=== PATIENT | female | born 1975 | race Caucasian/White ===

== ENCOUNTER 2017-02-02 23:36 | Emergency (ER) | payer OTHER, MEDICAID ==
[~2017-02-02] VITALS: Ht 167.6 cm; Wt 133.5 kg
[~2017-02-02 23:36] MED LIST: ALBU8.5H5 INH; ALLERGY PILL PO; ALPR1TAB6 PO; ATEN100T PO; BUDE10.22 IH; DOXE50CA PO; GABA600T PO; GABA800T PO; NITR0.4T SL; NYST15CR2 TD; OMEP-110 PO; OMEP40CA6 PO; OXYC-302 PO; PANT20TA3 PO; PRED10TA PO; PREG150C PO; RANO500T2 PO; SUCR1TAB26 PO; ZOLP10TA5
[2017-02-03 02:18] VITALS: BP 124/81
[2017-02-03 03:03] LABS: BLOOD UREA NITROGEN 8 mg/dL (7-18)
== END 2017-02-03 04:08 | disposition home or self-care (01) ==
LOC: ED 23:59
DX: R06.00 Dyspnea, unspecified (principal); R42 Dizziness and giddiness; J02.9 Acute pharyngitis, unspecified; I10 Essential (primary) hypertension; E11.9 Type 2 diabetes mellitus without complications; K21.9 Gastro-esophageal reflux disease without esophagitis; Z90.710 Acquired absence of both cervix and uterus; Z90.49 Acquired absence of other specified parts of digestive tract; E87.6 Hypokalemia; Z88.2 Allergy status to sulfonamides; Z91.040 Latex allergy status
CPT/HCPCS: 36415; 71010; 80048; 82040; 85025; 93005; 99285

== ENCOUNTER 2017-02-04 21:10 | Emergency (ER) | payer OTHER, MEDICAID ==
[~2017-02-04] VITALS: Ht 167.6 cm; Wt 129.6 kg
[2017-02-04 21:44] VITALS: BP 143/88
[2017-02-04 22:47] LABS: ASPARTATE AMINO TRANSFERASE 31 U/L (15-37); BLOOD UREA NITROGEN 5 mg/dL (7-18)
[2017-02-04 23:01] LABS: IS PT STATUS REG ER OR PRE ER? YES
== END 2017-02-05 01:56 | disposition home or self-care (01) ==
LOC: ED 23:49
DX: R07.89 Other chest pain (principal); R00.2 Palpitations; E11.9 Type 2 diabetes mellitus without complications; I10 Essential (primary) hypertension; Z90.710 Acquired absence of both cervix and uterus; Z90.49 Acquired absence of other specified parts of digestive tract; Z88.2 Allergy status to sulfonamides
CPT/HCPCS: 36415; 71020; 80053; 83690; 84439; 84443; 84484; 85025; 93005; 99285

== ENCOUNTER 2017-02-17 03:56 | Inpatient (IN) | payer OTHER, MEDICAID ==
[~2017-02-17] VITALS: Ht 167.6 cm; Wt 135.4 kg
[2017-02-17] MEDS ORDERED: MORPHINE SULFATE 4 MG/ML, 1ML ONE (04:20)
[2017-02-17] MEDS ORDERED: ONDANSETRON 2MG/ML, 2ML ONE ×2 (04:21→10:32)
[2017-02-17] MEDS ORDERED: SODIUM CHLORIDE 0.9% 1,000ML IVBOLUS ONE (04:30)
[2017-02-17] MEDS ORDERED: ONDANSETRON 2MG/ML, 2ML IVPush ONE (04:30)
[2017-02-17] MEDS ORDERED: PROPOFOL 10 MG/ML, 20ML IVPush ONE (04:30)
[2017-02-17] MEDS ORDERED: SODIUM CHLORIDE FLUSH 10ML SYR IVF ONE (04:30)
[2017-02-17] MEDS ORDERED: MORPHINE SULFATE 4 MG/ML, 1ML IVPush ONE (04:30)
[2017-02-17 04:37] LABS: BLOOD UREA NITROGEN 7 mg/dL (7-18)
[2017-02-17 04:42] LABS: IS PT STATUS REG ER OR PRE ER? YES
[2017-02-17] MEDS ORDERED: KETAMINE 10 MG/ML, 20ML ONE (04:52)
[2017-02-17] MEDS ORDERED: KETAMINE 10 MG/ML, 20ML IV ONE (05:00)
[2017-02-17] MEDS ORDERED: ALPRazolam 1MG TABLET PO PRN (06:30)
[2017-02-17] MEDS ORDERED: DOXEPIN 25 MG CAPSULE PO PRN (06:30)
[2017-02-17] MEDS ORDERED: TEMPLATE NON-FORMULARY MED. (Albuterol Sulfate** (Albuterol Sulfate Hfa**) 2 PUFF(S)) INH PRN (06:30)
[2017-02-17] MEDS: morphine SULFATE 10 MG/ML, 1ML IVPush PRN ×2 (08:20→13:31)
[2017-02-17 08:39] VITALS: BP 102/67
[2017-02-17] MEDS ORDERED: ATENOLOL 50 MG TABLET PO SCH (09:00)
[2017-02-17] MEDS: NS + 20MEQ KCL 1,000 ML IV SCH ×2 (10:24→19:07)
[2017-02-17] MEDS: PANTOPRAZOLE 20MG TABLET PO SCH (10:27)
[2017-02-17] MEDS: FLUTICASONE/VILANTEROL 100-25MCG/INH INH SCH (10:27)
[2017-02-17] MEDS: PREGABALIN 150 MG CAPSULE PO SCH ×3 (10:27→20:30)
[2017-02-17] MEDS: ATENOLOL 25 MG TABLET PO SCH ×2 (10:28→13:42)
[2017-02-17] MEDS ORDERED: PROPOFOL 10 MG/ML, 20ML ONE (10:32)
[2017-02-17] MEDS ORDERED: SUCCINYLCHOLINE 20 MG/ML, 10ML ONE (10:32)
[2017-02-17] MEDS ORDERED: CEFAZOLIN 1,000 MG ONE (10:32)
[2017-02-17 12:42] VITALS: BP 120/68
[2017-02-17] MEDS: ONDANSETRON 2MG/ML, 2ML IVPush PRN ×2 (13:40→22:01)
[2017-02-17] MEDS ORDERED: BUPIVACAINE 0.25% ONE (14:09)
[2017-02-17] MEDS ORDERED: BUPIVACAINE/PF 0.5% ONE (14:09)
[2017-02-17] MEDS ORDERED: FENTANYL PF 100 MCG/2ML ONE ×2 (14:13→16:54)
[2017-02-17] MEDS ORDERED: MIDAZOLAM 1 MG/ML, 2ML ONE (14:13)
[2017-02-17] MEDS ORDERED: BUPIVACAINE/PF-EPI 0.5% 1:200K ONE (14:18)
[2017-02-17] MEDS ORDERED: OXYcodone 5 MG/5 ML ORAL.SOL UDC PO PRN (17:00)
[2017-02-17] MEDS ORDERED: HYDROmorphone 1 MG/ML, 1ML IV PRN (17:00)
[2017-02-17] MEDS ORDERED: PROMETHAZINE 25 MG/ML, 1ML IV PRN (17:00)
[2017-02-17] MEDS ORDERED: MEPERIDINE/PF 25MG/0.5ML IVPush PRN (17:00)
[2017-02-17] MEDS ORDERED: hydrALAzine 20 MG/ML, 1ML IV PRN (17:00)
[2017-02-17] MEDS ORDERED: FENTANYL PF 100 MCG/2ML IV PRN (17:00)
[2017-02-17] MEDS ORDERED: LABETALOL 5MG/ML, 20ML IV PRN (17:00)
[2017-02-17] MEDS ORDERED: MIDAZOLAM 1 MG/ML, 2ML IV PRN (17:00)
[2017-02-17] MEDS ORDERED: ONDANSETRON 2MG/ML, 2ML IVPush PRN (17:00)
[2017-02-17] MEDS ORDERED: ATENOLOL 25 MG TABLET PO SCH (18:00)
[2017-02-17] MEDS ORDERED: morphine SULFATE 10 MG/ML, 1ML IVPush PRN (18:00)
[2017-02-17] MEDS: ENOXAPARIN 30 MG/0.3 ML SQ SCH (18:00)
[2017-02-17 19:18] VITALS: BP 122/62
[2017-02-17] MEDS: CEFAZOLIN PMX 2GM/50ML 50 ML IVPB SCH (20:30)
[2017-02-17] MEDS: OXYcodone/APAP 5/325MG TABLET PO PRN (20:31)
[2017-02-18 00:48] VITALS: BP 131/73
[2017-02-18] MEDS: NS + 20MEQ KCL 1,000 ML IV SCH ×2 (01:15→10:00)
[2017-02-18] MEDS: CEFAZOLIN PMX 2GM/50ML 50 ML IVPB SCH (04:10)
[2017-02-18] MEDS: ENOXAPARIN 30 MG/0.3 ML SQ SCH (05:06)
[2017-02-18 06:23] LABS: BLOOD UREA NITROGEN 5 mg/dL (7-18)
[2017-02-18 06:52] VITALS: BP 129/84
[2017-02-18] MEDS: FLUTICASONE/VILANTEROL 100-25MCG/INH INH SCH (08:42)
[2017-02-18] MEDS: PANTOPRAZOLE 20MG TABLET PO SCH (08:43)
[2017-02-18] MEDS: PREGABALIN 150 MG CAPSULE PO SCH (08:43)
[2017-02-18] MEDS: ATENOLOL 25 MG TABLET PO SCH (08:44)
[2017-02-18] MEDS: OXYcodone/APAP 5/325MG TABLET PO PRN ×2 (08:45→13:28)
[2017-02-18] MEDS ORDERED: ATEN50TA41 PO (11:03)
[2017-02-18] MEDS ORDERED: OXYC1TAB7 PO (11:03)
[2017-02-18] MEDS ORDERED: DIPHENHYDRAMINE 25 MG CAPSULE PO ONE (12:30)
[2017-02-18 13:16] VITALS: BP 117/81
== END 2017-02-18 16:25 | disposition home or self-care (01) | DRG 493 ==
LOC: ED 05:25 → EDIP 05:36 → 4EST 06:28 → DCLOUNGE 02-18 15:55
PROVIDERS: ADMIT Family Medicine; ATTEND Family Medicine
PROC: 0QSJ04Z Reposition Right Fibula with Internal Fixation Device, Open Approach (ICD-10-PCS; 2017-02-17)
PROC: 0SSF04Z Reposition Right Ankle Joint with Internal Fixation Device, Open Approach (ICD-10-PCS; 2017-02-17)
PROC: 0QSG04Z Reposition Right Tibia with Internal Fixation Device, Open Approach (ICD-10-PCS; principal; 2017-02-17 15:00)
DX: S82.851A Displaced trimalleolar fracture of right lower leg, initial encounter for closed fracture (principal); Z68.42 Body mass index [BMI] 45.0-49.9, adult; I47.1 Supraventricular tachycardia; E87.6 Hypokalemia; I10 Essential (primary) hypertension; M79.7 Fibromyalgia; E11.9 Type 2 diabetes mellitus without complications; E66.9 Obesity, unspecified; F41.9 Anxiety disorder, unspecified; F43.9 Reaction to severe stress, unspecified; J45.909 Unspecified asthma, uncomplicated; K21.9 Gastro-esophageal reflux disease without esophagitis; M21.961 Unspecified acquired deformity of right lower leg; Z87.891 Personal history of nicotine dependence; W18.30XA Fall on same level, unspecified, initial encounter; Y93.89 Activity, other specified; Y99.8 Other external cause status; Y92.89 Other specified places as the place of occurrence of the external cause
CPT/HCPCS: 27762; 36415; 71010; 76001; 80048; 82040; 84484; 85025; 85610; 85730; 93005; 93306; 99152; 99153; C1713; J0690; J1650; J2250; J2405; J2704; J3010; J3480; J3490; C1769; J0330; J2270; J7030; Q0163

== ENCOUNTER 2017-03-01 13:25 | Emergency (ER) | payer OTHER, MEDICAID ==
[~2017-03-01 13:25] MED LIST changes: +ATEN50TA41 PO; +OXYC1TAB7 PO
[2017-03-01] MEDS ORDERED: LORazepam 1MG TABLET ONE (13:49)
[2017-03-01] MEDS ORDERED: OXYC-302 PO (13:59)
[2017-03-01] MEDS ORDERED: PLEASE ENTER HEIGHT AND WEIGHT MC SCH (14:00)
[2017-03-01] MEDS ORDERED: LORazepam 1MG TABLET PO ONE (14:00)
[2017-03-01 14:12] LABS: BLOOD UREA NITROGEN 9 mg/dL (7-18)
[2017-03-01 14:17] LABS: IS PT STATUS REG ER OR PRE ER? YES
[2017-03-01 15:06] VITALS: BP 131/77
== END 2017-03-01 15:14 | disposition home or self-care (01) ==
LOC: ED 14:18
DX: M84.461D Pathological fracture, right tibia, subsequent encounter for fracture with routine healing (principal); M84.463D Pathological fracture, right fibula, subsequent encounter for fracture with routine healing; R00.2 Palpitations; R42 Dizziness and giddiness; E11.9 Type 2 diabetes mellitus without complications; Z88.2 Allergy status to sulfonamides; Z91.040 Latex allergy status
CPT/HCPCS: 36415; 71010; 80048; 82040; 84484; 85025; 93005; 99285

== ENCOUNTER 2017-03-18 10:38 | Observation (INO) | payer OTHER, MEDICAID ==
[~2017-03-18] VITALS: Ht 167.6 cm; Wt 132.8 kg
[2017-03-18] MEDS: SODIUM CHLORIDE 0.9% 1,000 ML IV SCH ×2 (10:50→18:50)
[2017-03-18] MEDS ORDERED: CEFAZOLIN PMX 1GM/50ML 50 ML IVPB ONE (11:00)
[2017-03-18] MEDS: PLEASE ENTER HEIGHT AND WEIGHT MC SCH ×2 (12:00→20:00)
[2017-03-18] MEDS ORDERED: PREG200C PO (12:01)
[2017-03-18] MEDS ORDERED: DOXE100C PO (12:01)
[2017-03-18] MEDS ORDERED: CETI10CA PO (12:03)
[2017-03-18 12:26] LABS: ASPARTATE AMINO TRANSFERASE 11 U/L (15-37)
[2017-03-18 12:29] LABS: BLOOD UREA NITROGEN 13 mg/dL (7-18)
[2017-03-18] MEDS ORDERED: FENTANYL PF 250 MCG/5ML ONE (12:34)
[2017-03-18] MEDS ORDERED: MIDAZOLAM 1 MG/ML, 5ML ONE (12:35)
[2017-03-18] MEDS ORDERED: ZOLPIDEM 5MG TABLET PO PRN (14:00)
[2017-03-18] MEDS ORDERED: HYDROcodone/APAP 5/325 TABLET PO PRN (14:00)
[2017-03-18] MEDS ORDERED: ACETAMINOPHEN 325 MG TABLET PO PRN ×2 (14:00→14:30)
[2017-03-18] MEDS ORDERED: FENTANYL PF 100 MCG/2ML IV PRN (14:30)
[2017-03-18] MEDS ORDERED: HYDROmorphone 1 MG/ML, 1ML IV PRN (14:30)
[2017-03-18] MEDS ORDERED: MIDAZOLAM 1 MG/ML, 2ML IV PRN (14:30)
[2017-03-18] MEDS ORDERED: OXYcodone 5 MG/5 ML ORAL.SOL UDC PO PRN (14:30)
[2017-03-18] MEDS ORDERED: PROMETHAZINE 25 MG/ML, 1ML IV PRN (14:30)
[2017-03-18] MEDS ORDERED: ONDANSETRON 2MG/ML, 2ML IVPush PRN (14:30)
[2017-03-18] MEDS ORDERED: OXYcodone 5 MG/5 ML ORAL.SOL UDC ONE (14:31)
[2017-03-18] MEDS ORDERED: MAGNESIUM HYDROXIDE 8%, 30ML UDC PO SCH (16:00)
[2017-03-18] MEDS ORDERED: BISACODYL 10 MG SUPP PR PRN (16:00)
[2017-03-18] MEDS ORDERED: hydrALAzine 20 MG/ML, 1ML IV PRN (16:00)
[2017-03-18] MEDS ORDERED: ONDANSETRON 2MG/ML, 2ML ONE (16:57)
[2017-03-18] MEDS ORDERED: PROPOFOL 10 MG/ML, 20ML ONE (16:57)
[2017-03-18] MEDS ORDERED: SUCCINYLCHOLINE 20 MG/ML, 10ML ONE (16:57)
[2017-03-18] MEDS ORDERED: CEFAZOLIN 1,000 MG ONE (16:57)
[2017-03-18] MEDS ORDERED: DEXAMETHASONE 4 MG/ML, 1ML ONE (16:57)
[2017-03-18 20:00] VITALS: BP 129/70
[2017-03-18] MEDS ORDERED: OXYcodone/APAP 5/325MG TABLET PO PRN (22:30)
[2017-03-18] MEDS ORDERED: ALPRazolam 1MG TABLET PO PRN (22:30)
[2017-03-18] MEDS: SODIUM CHLORIDE FLUSH 10ML SYR IVF SCH (22:58)
[2017-03-18] MEDS: CEFAZOLIN PMX 1GM/50ML 50 ML IVPB SCH (22:58)
[2017-03-19 00:50] VITALS: BP 138/84
[2017-03-19] MEDS ORDERED: PANTOPROZOLE 40MG TABLET PO SCH (07:30)
[2017-03-19 08:17] VITALS: BP 106/72
[2017-03-19] MEDS: CEFAZOLIN PMX 1GM/50ML 50 ML IVPB SCH (08:20)
[2017-03-19] MEDS: SODIUM CHLORIDE FLUSH 10ML SYR IVF SCH (08:20)
[2017-03-19] MEDS ORDERED: CETIRIZINE 10 MG TABLET PO SCH (09:00)
[2017-03-19] MEDS ORDERED: PREGABALIN 200 MG CAPSULE PO SCH (09:00)
[2017-03-19] MEDS ORDERED: ATEN25TA PO (10:45)
[2017-03-19] MEDS ORDERED: DOXEPIN 100 MG CAPSULE PO SCH (21:00)
== END 2017-03-19 13:04 | disposition home or self-care (01) ==
LOC: CACL 10:38 → ORIP 14:00 → 5SO 15:35 → DCLOUNGE 03-19 12:48
PROVIDERS: ADMIT Internal Medicine Cardiovascular Disease; ATTEND Internal Medicine Cardiovascular Disease
DX: I49.5 Sick sinus syndrome (principal); I45.5 Other specified heart block; R00.1 Bradycardia, unspecified; R55 Syncope and collapse; E78.2 Mixed hyperlipidemia
CPT/HCPCS: 33208; 36415; 71010; 80053; 85025; 85610; 96365; 96375; C1779; C1785; C1892; G0378; J0330; J0690; J1100; J2250; J2405; J2704; J3010

== ENCOUNTER 2017-05-19 10:20 | Emergency (ER) | payer OTHER, MEDICAID ==
[~2017-05-19] VITALS: Ht 167.6 cm; Wt 134.0 kg
[~2017-05-19 10:20] MED LIST changes: +ATEN25TA PO; +CETI10CA PO; +DOXE100C PO; +PREG200C PO; -SUCR1TAB26 PO; +SUCR1TAB33 PO
[2017-05-19] MEDS ORDERED: SODIUM CHLORIDE 0.9% 1,000 ML IV ONE (10:36)
[2017-05-19] MEDS ORDERED: PLEASE ENTER HEIGHT AND WEIGHT MC SCH (11:00)
[2017-05-19] MEDS ORDERED: SODIUM CHLORIDE 0.9% 1,000ML IVBOLUS ONE (11:00)
[2017-05-19] MEDS ORDERED: SODIUM CHLORIDE FLUSH 10ML SYR IVF ONE (11:00)
[2017-05-19 11:01] LABS: HEMATOCRIT 42.4 % (34.6-47.8); HEMOGLOBIN 13.6 g/dL (11.7-16.4); WHITE BLOOD COUNT 8.8 x10^3/uL (3.4-10)
[2017-05-19] MEDS ORDERED: ATEN25TA PO (11:04)
[2017-05-19] MEDS ORDERED: MULT-516 PO (11:05)
[2017-05-19 11:14] LABS: BLOOD UREA NITROGEN 11 mg/dL (7-18)
[2017-05-19 11:22] LABS: IS PT STATUS REG ER OR PRE ER? YES
[2017-05-19 12:31] VITALS: BP 103/70
== END 2017-05-19 12:34 | disposition home or self-care (01) ==
LOC: ED 10:42
DX: R55 Syncope and collapse (principal); G89.11 Acute pain due to trauma; M25.571 Pain in right ankle and joints of right foot; I10 Essential (primary) hypertension; E11.9 Type 2 diabetes mellitus without complications; K21.9 Gastro-esophageal reflux disease without esophagitis; Z90.49 Acquired absence of other specified parts of digestive tract; Z90.710 Acquired absence of both cervix and uterus; Z91.040 Latex allergy status
CPT/HCPCS: 36415; 71010; 73610; 80048; 82040; 84484; 85025; 93005; 96360; 99285; J7030

== ENCOUNTER 2018-05-17 00:38 | Emergency (ER) | payer OTHER, MEDICAID ==
[~2018-05-17] VITALS: Ht 165.1 cm; Wt 12.0 kg
[~2018-05-17 00:38] MED LIST changes: +MULT-516 PO
[2018-05-17 01:15] LABS: BASOPHILS # (AUTO) 0.06 x10^3/uL (0-0.1); BASOPHILS % (AUTO) 1 % (0-1); EOSINOPHILS # (AUTO) 0.09 x10^3/uL (0-0.4); EOSINOPHILS % (AUTO) 1 % (1-7); LYMPHOCYTES % (AUTO) 39 % (22-44); MD NO; MEAN CORPUSCULAR HEMOGLOBIN 27.4 pg (27.0-34.8); MEAN CORPUSCULAR HGB CONC 33.4 g/dL (32.4-35.8); MEAN PLATELET VOLUME 8.7 fL (7.4-10.4); MONOCYTES # (AUTO) 1.08 x10^3/uL (0.2-0.8); MONOCYTES % (AUTO) 9 % (2-9); NEUTROPHILS # (AUTO) 6.22 x10^3/uL (1.8-6.8); NEUTROPHILS % (AUTO) 51 % (42-75); PLATELET COUNT 212 x10^3/uL (130-400); RED CELL DISTRIBUTION WIDTH 14.4 % (9.6-15.2)
[2018-05-17 01:25] LABS: ALBUMIN 3.9 g/dL (3.4-5.0); ANION GAP 10 mmol/L (5-15); CALCIUM 9.4 mg/dL (8.5-10.1); CHLORIDE 101 mmol/L (98-107); CREATININE 1.07 mg/dL (0.55-1.02)
[2018-05-17 01:29] LABS: TROPONIN I < 0.015 ng/mL (0.000-0.045)
[2018-05-17] MEDS ORDERED: METHOCARBAMOL 750 MG TABLET ONE (01:50)
[2018-05-17] MEDS ORDERED: KETOROLAC 30 MG/1 ML ONE (01:50)
[2018-05-17 01:59] VITALS: BP 102/61
[2018-05-17] MEDS ORDERED: KETOROLAC 30 MG/1 ML IM ONE (02:00)
[2018-05-17] MEDS ORDERED: METHOCARBAMOL 750 MG TABLET PO ONE (02:00)
[2018-05-17] MEDS ORDERED: METH750T87 PO (12:13)
[2018-05-17] MEDS ORDERED: IBUP-1223 PO (12:13)
[2018-05-17] MEDS ORDERED: DIGO125T PO (12:13)
== END 2018-05-17 02:18 | disposition home or self-care (01) ==
LOC: ED 02:12
DX: S16.1XXA Strain of muscle, fascia and tendon at neck level, initial encounter (principal); M79.622 Pain in left upper arm; I10 Essential (primary) hypertension; K21.9 Gastro-esophageal reflux disease without esophagitis; Z86.39 Personal history of other endocrine, nutritional and metabolic disease; X58.XXXA Exposure to other specified factors, initial encounter; Y93.89 Activity, other specified; Y92.89 Other specified places as the place of occurrence of the external cause; Y99.8 Other external cause status
CPT/HCPCS: 36415; 71045; 80048; 82040; 84484; 85025; 93005; 96372; 99285; J1885

== ENCOUNTER 2018-05-18 09:04 | Observation (INO) | payer OTHER, MEDICAID ==
[~2018-05-18] VITALS: Ht 165.1 cm; Wt 121.8 kg
[~2018-05-18 09:04] MED LIST changes: +DIGO125T PO; +IBUP-1223 PO; +METH750T87 PO
[2018-05-18] MEDS: SODIUM CHLORIDE 0.9% 1,000 ML IV SCH ×3 (09:08→22:14)
[2018-05-18 09:40] VITALS: BP 94/57
[2018-05-18] MEDS ORDERED: FENTANYL PF 100 MCG/2ML ONE (10:15)
[2018-05-18] MEDS ORDERED: LIDOCAINE 2%, 50ML ONE (10:15)
[2018-05-18] MEDS ORDERED: CEFAZOLIN PMX 1GM/50ML 50 ML ONE (10:15)
[2018-05-18] MEDS ORDERED: MIDAZOLAM 1 MG/ML, 5ML ONE (10:15)
[2018-05-18] MEDS ORDERED: CEFAZOLIN 1,000 MG ONE (10:16)
[2018-05-18] MEDS ORDERED: DIPHENHYDRAMINE 50 MG/ML, 1ML ONE (10:48)
[2018-05-18 12:00] VITALS: BP 122/76
[2018-05-18] MEDS ORDERED: ACETAMINOPHEN 325 MG TABLET PO PRN (12:00)
[2018-05-18] MEDS ORDERED: HOLD MEDICATION MC PRN (12:00)
[2018-05-18] MEDS ORDERED: ALPRazolam 1MG TABLET PO PRN (12:00)
[2018-05-18] MEDS: METHOCARBAMOL 750 MG TABLET PO PRN ×2 (14:40→23:29)
[2018-05-18] MEDS: PREGABALIN 200 MG CAPSULE PO SCH ×2 (16:00→20:32)
[2018-05-18 19:00] VITALS: BP 138/87
[2018-05-18] MEDS: IBUPROFEN 800 MG TABLET PO SCH (20:32)
[2018-05-18] MEDS: CEFAZOLIN PMX 1GM/50ML 50 ML IVPB SCH (20:32)
[2018-05-18] MEDS: SODIUM CHLORIDE FLUSH 10ML SYR IVF SCH (20:33)
[2018-05-18] MEDS ORDERED: ATENOLOL 25 MG TABLET PO SCH (21:00)
[2018-05-18] MEDS ORDERED: SERTRALINE 50MG TABLET PO SCH (23:00)
[2018-05-19 00:41] VITALS: BP 102/71
[2018-05-19] MEDS: DIPHENHYDRAMINE 25 MG CAPSULE PO PRN ×2 (01:59→11:05)
[2018-05-19] MEDS: CEFAZOLIN PMX 1GM/50ML 50 ML IVPB SCH (04:30)
[2018-05-19] MEDS ORDERED: PANTOPROZOLE 40MG TABLET PO SCH (07:30)
[2018-05-19] MEDS: SODIUM CHLORIDE FLUSH 10ML SYR IVF SCH (07:48)
[2018-05-19] MEDS: PREGABALIN 200 MG CAPSULE PO SCH (07:48)
[2018-05-19] MEDS: IBUPROFEN 800 MG TABLET PO SCH (07:49)
[2018-05-19 07:56] VITALS: BP 140/83
[2018-05-19] MEDS: SODIUM CHLORIDE 0.9% 1,000 ML IV SCH (08:59)
[2018-05-19] MEDS ORDERED: DIGOXIN 0.125 MG TABLET PO SCH (09:00)
[2018-05-19] MEDS ORDERED: CETIRIZINE 10 MG TABLET PO SCH (09:00)
[2018-05-19] MEDS ORDERED: MULTIVITAMIN 1 TABLET PO SCH (09:00)
== END 2018-05-19 12:41 | disposition home or self-care (01) ==
LOC: CACL 09:04 → ORIP 11:54 → 5SO 11:56 → DCLOUNGE 05-19 12:29
PROVIDERS: ADMIT Internal Medicine Cardiovascular Disease; ATTEND Internal Medicine Cardiovascular Disease
DX: T82.190A Other mechanical complication of cardiac electrode, initial encounter (principal); R55 Syncope and collapse; Z95.0 Presence of cardiac pacemaker; E78.2 Mixed hyperlipidemia; I49.8 Other specified cardiac arrhythmias; Y83.8 Other surgical procedures as the cause of abnormal reaction of the patient, or of later complication, without mention of misadventure at the time of the procedure; Y92.89 Other specified places as the place of occurrence of the external cause
CPT/HCPCS: 33216; 71045; 96365; 96366; 99156; 99157; C1779; C1892; G0378; J0690; J1200; J2250; J3010; Q0163; Q9967

== ENCOUNTER 2018-05-21 21:17 | Emergency (ER) | payer OTHER, MEDICAID ==
[~2018-05-21] VITALS: Ht 165.1 cm; Wt 126.0 kg
[2018-05-21] MEDS ORDERED: FAMOTIDINE 20 MG TABLET PO ONE (22:30)
[2018-05-21] MEDS ORDERED: FAMOTIDINE 20 MG TABLET ONE (22:53)
[2018-05-21 23:00] VITALS: BP 105/78
== END 2018-05-21 23:37 | disposition home or self-care (01) ==
LOC: ED 23:17
DX: T78.40XA Allergy, unspecified, initial encounter (principal); K21.9 Gastro-esophageal reflux disease without esophagitis; I10 Essential (primary) hypertension; E11.9 Type 2 diabetes mellitus without complications
CPT/HCPCS: 99283; J7512

== ENCOUNTER 2019-01-31 13:50 | Emergency (ER) | payer MEDICAID, MEDICARE, OTHER ==
[~2019-01-31] VITALS: Ht 167.6 cm; Wt 116.6 kg
[2019-01-31 14:24] LABS: BASOPHILS # (AUTO) 0.07 x10^3/uL (0-0.1); BASOPHILS % (AUTO) 1 % (0-1); EOSINOPHILS % (AUTO) 2 % (1-7); LYMPHOCYTES # (AUTO) 2.91 x10^3/uL (1-3.4); LYMPHOCYTES % (AUTO) 32 % (22-44); MD NO; MEAN CORPUSCULAR HGB CONC 32.1 g/dL (32.4-35.8); MEAN CORPUSCULAR VOLUME 83.9 fL (80-100); MEAN PLATELET VOLUME 9.2 fL (7.4-10.4); MONOCYTES # (AUTO) 0.92 x10^3/uL (0.2-0.8); MONOCYTES % (AUTO) 10 % (2-9); NEUTROPHILS # (AUTO) 5.07 x10^3/uL (1.8-6.8); NEUTROPHILS % (AUTO) 55 % (42-75); PLATELET COUNT 226 x10^3/uL (130-400); RED BLOOD COUNT 5.63 x10^6/uL (3.82-5.3); RED CELL DISTRIBUTION WIDTH 14.6 % (9.6-15.2)
[2019-01-31 14:29] LABS: ANION GAP 4 mmol/L (5-15); CALCIUM 9.3 mg/dL (8.5-10.1); CHLORIDE 110 mmol/L (98-107); CREATININE 0.93 mg/dL (0.55-1.02)
[2019-01-31 14:34] LABS: TROPONIN I < 0.015 ng/mL (0.000-0.045)
--- NOTE | 2019-01-31 15:37 | NUR ---
TASK RN: PT TO ROOM FROM LOBBY BY WHEELCHAIR
--- NOTE | 2019-01-31 15:40 | NUR ---
SAT IN THE SUN TODAY WAITING TO VISIT [facility] IN [place]. C/O DIZZINESS, [place], "TWINKLE TWINKLE LITTLE STARS" VITALS STABLE
--- NOTE | 2019-01-31 15:51 | NUR ---
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
[2019-01-31 17:10] LABS: AMPHETAMINE SCREEN, URINE Negative (Negative); BENZODIAZEPINE SCREEN, URINE Positive (Negative); CANNABINOID SCREEN, URINE Positive (Negative); COCAINE SCREEN, URINE Negative (Negative); METHADONE SCREEN, URINE Negative (Negative); OPIATE SCREEN, URINE Negative (Negative)
[2019-01-31 17:19] LABS: BARBITURATE SCREEN, URINE Negative (Negative)
--- NOTE | 2019-01-31 17:27 | NUR ---
TOLERATING PO FLUIDS (HAS DRANK 400ML OD BOTTLED) WATER VITALS STABLE ON MONITOR UPDATED ON POC CALL CHAHAL IN HAND/SIDE RAILS UP
[2019-01-31 17:32] VITALS: BP 122/74
--- NOTE | 2019-01-31 17:54 | NUR ---
Patient given discharge instructions and they have confirmed that they understand the instructions. Patient ambulatory with steady gait.
== END 2019-01-31 18:00 | disposition home or self-care (01) ==
LOC: ED 17:54
DX: R42 Dizziness and giddiness (principal); R11.0 Nausea; E11.9 Type 2 diabetes mellitus without complications; E07.9 Disorder of thyroid, unspecified; K21.9 Gastro-esophageal reflux disease without esophagitis; I95.9 Hypotension, unspecified; Z90.49 Acquired absence of other specified parts of digestive tract; Z90.710 Acquired absence of both cervix and uterus
CPT/HCPCS: 36415; 70450; 71045; 80048; 80307; 82040; 84484; 84703; 85025; 93005; 99284

== ENCOUNTER 2019-05-04 23:23 | Observation (INO) | payer MEDICARE, MEDICAID ==
[~2019-05-04] VITALS: Ht 167.6 cm; Wt 107.8 kg
[2019-05-05 14:04] VITALS: BP 132/58
== END 2019-05-05 17:35 | disposition home or self-care (01) ==
LOC: ED 23:51 → INTOOBSV 23:56 → 5SO 23:56 → ED 05-05 00:01 → DCLOUNGE 05-05 14:54 → 4WST 05-05 16:57 → DCLOUNGE 05-05 17:01 → 4WST 05-05 17:04 → DCLOUNGE 05-05 17:06
PROVIDERS: ADMIT Family Medicine; ATTEND Family Medicine
DX: R55 Syncope and collapse (principal); I49.5 Sick sinus syndrome; E11.9 Type 2 diabetes mellitus without complications; I10 Essential (primary) hypertension; K21.9 Gastro-esophageal reflux disease without esophagitis; E06.3 Autoimmune thyroiditis; M79.7 Fibromyalgia; F41.9 Anxiety disorder, unspecified; I47.1 Supraventricular tachycardia; F12.90 Cannabis use, unspecified, uncomplicated; F17.200 Nicotine dependence, unspecified, uncomplicated; Z90.710 Acquired absence of both cervix and uterus; Z95.0 Presence of cardiac pacemaker; Z79.899 Other long term (current) drug therapy
CPT/HCPCS: 36415; 70450; 71045; 80053; 80162; 83036; 83735; 83880; 84436; 84443; 84484; 84703; 85025; 93005; 96360; 96361; 96372; 99284; G0378; J1644; J3480; J7030; J7050

== ENCOUNTER 2019-10-23 15:39 | Emergency (ER) | payer MEDICARE, MEDICAID ==
[~2019-10-23] VITALS: Ht 167.6 cm; Wt 114.1 kg
[~2019-10-23 15:39] MED LIST changes: +MELO15TA6 PO; -NITR0.4T SL; +NITR0.4T41 SL; +OMEP40CA42 PO; -OMEP40CA6 PO
[2019-10-23] MEDS ORDERED: LORazepam 1MG TABLET PO ONE (16:30)
[2019-10-23 16:47] LABS: BASOPHILS # (AUTO) 0.03 x10^3/uL (0-0.1); BASOPHILS % (AUTO) 1 % (0-1); EOSINOPHILS # (AUTO) 0.13 x10^3/uL (0-0.4); EOSINOPHILS % (AUTO) 2 % (1-7); LYMPHOCYTES # (AUTO) 2.47 x10^3/uL (1-3.4); LYMPHOCYTES % (AUTO) 34 % (22-44); MD NO; MEAN CORPUSCULAR HEMOGLOBIN 26.9 pg (27.0-34.8); MEAN CORPUSCULAR VOLUME 81.7 fL (80-100); MEAN PLATELET VOLUME 9.1 fL (7.4-10.4); MONOCYTES # (AUTO) 0.53 x10^3/uL (0.2-0.8); MONOCYTES % (AUTO) 7 % (2-9); NEUTROPHILS # (AUTO) 4.09 x10^3/uL (1.8-6.8); NEUTROPHILS % (AUTO) 56 % (42-75); PLATELET COUNT 189 x10^3/uL (130-400); RED BLOOD COUNT 5.56 x10^6/uL (3.82-5.3); RED CELL DISTRIBUTION WIDTH 14.9 % (9.6-15.2)
[2019-10-23 16:53] LABS: ALBUMIN 3.8 g/dL (3.4-5.0); ANION GAP 7 mmol/L (5-15); CALCIUM 9.2 mg/dL (8.5-10.1); CHLORIDE 106 mmol/L (98-107)
[2019-10-23] MEDS ORDERED: LORazepam 1MG TABLET ONE (16:54)
[2019-10-23 16:57] LABS: TROPONIN I < 0.015 ng/mL (0.000-0.045)
[2019-10-23 16:58] VITALS: BP 141/64
--- NOTE | 2019-10-23 16:59 | NUR ---
MEDICATED PER EMAR VSS ON DESIGNER/WRITER (INTERMITENTLY A/V PACED) IN THE 60-70'S, 141/64 UPDATED ON ESTIMATED POC
== END 2019-10-23 17:54 | disposition home or self-care (01) ==
LOC: ED 17:40
DX: R00.2 Palpitations (principal); F41.1 Generalized anxiety disorder; I10 Essential (primary) hypertension; E11.9 Type 2 diabetes mellitus without complications; K21.9 Gastro-esophageal reflux disease without esophagitis; M79.7 Fibromyalgia; G47.33 Obstructive sleep apnea (adult) (pediatric); Z90.49 Acquired absence of other specified parts of digestive tract; Z90.710 Acquired absence of both cervix and uterus
CPT/HCPCS: 36415; 71045; 80048; 82040; 83735; 84443; 84484; 85025; 93005; 99284

== ENCOUNTER 2019-11-09 14:05 | Outpatient (CLI) | payer MEDICARE, MEDICAID ==
[~2019-11-09 14:05] MED LIST changes: -DIGO125T PO; +DIGO125T85 PO
== END 2019-11-09 23:59 | disposition home or self-care (01) ==
LOC: CFH 14:05
PROVIDERS: ATTEND Internal Medicine Cardiovascular Disease
DX: I49.8 Other specified cardiac arrhythmias (principal); R55 Syncope and collapse; Z95.0 Presence of cardiac pacemaker
CPT/HCPCS: 71046

== ENCOUNTER 2019-12-09 06:38 | Observation (INO) | payer MEDICARE, MEDICAID ==
[2019-12-08 09:55] LABS: BASOPHILS # (AUTO) 0.04 x10^3/uL (0-0.1); BASOPHILS % (AUTO) 1 % (0-1); EOSINOPHILS # (AUTO) 0.23 x10^3/uL (0-0.4); EOSINOPHILS % (AUTO) 4 % (1-7); LYMPHOCYTES # (AUTO) 2.21 x10^3/uL (1-3.4); LYMPHOCYTES % (AUTO) 34 % (22-44); MD NO; MEAN CORPUSCULAR HEMOGLOBIN 27.8 pg (27.0-34.8); MEAN CORPUSCULAR HGB CONC 33.2 g/dL (32.4-35.8); MEAN CORPUSCULAR VOLUME 83.6 fL (80-100); MEAN PLATELET VOLUME 8.1 fL (7.4-10.4); MONOCYTES # (AUTO) 0.45 x10^3/uL (0.2-0.8); MONOCYTES % (AUTO) 7 % (2-9); NEUTROPHILS # (AUTO) 3.67 x10^3/uL (1.8-6.8); NEUTROPHILS % (AUTO) 56 % (42-75); PLATELET COUNT 206 x10^3/uL (130-400); RED BLOOD COUNT 5.42 x10^6/uL (3.82-5.3); RED CELL DISTRIBUTION WIDTH 14.6 % (9.6-15.2)
[2019-12-08 10:11] LABS: ANION GAP 3 mmol/L (5-15); CALCIUM 8.8 mg/dL (8.5-10.1); CHLORIDE 109 mmol/L (98-107); CREATININE 0.88 mg/dL (0.55-1.02)
[~2019-12-09] VITALS: Ht 167.6 cm; Wt 120.3 kg
[~2019-12-09 06:38] MED LIST changes: +AJOVY SC; +FLUD0.1T PO; +MONOLAURIN PO; +ONDA4TAB7 PO; +PANT40TA5 PO; +POTA10TA5 PO; +VITA1CAP PO; +[UNRECOGNIZED DRUG - OTHER] PO; +zoloft PO
[2019-12-09] MEDS ORDERED: ONDANSETRON 2MG/ML, 2ML ONE (08:02)
[2019-12-09] MEDS ORDERED: GLYCOPYRROLATE 0.2MG/1ML, 5ML ONE (08:02)
[2019-12-09] MEDS ORDERED: NEOSTIGMINE 1 MG/ML, 10ML ONE (08:02)
[2019-12-09] MEDS ORDERED: SUCCINYLCHOLINE 20 MG/ML, 10ML ONE (08:02)
[2019-12-09] MEDS ORDERED: DEXAMETHASONE 4 MG/ML, 1ML ONE (08:02)
[2019-12-09] MEDS ORDERED: ROCURONIUM 10MG/ML,5ML ONE (08:02)
[2019-12-09] MEDS ORDERED: PROPOFOL 10 MG/ML, 20ML ONE (08:02)
[2019-12-09] MEDS ORDERED: HEPARIN 1,000 UNITS/ML, 10ML ONE (08:03)
[2019-12-09] MEDS ORDERED: FENTANYL PF 100 MCG/2ML ONE ×3 (08:03→13:13)
[2019-12-09] MEDS ORDERED: LIDOCAINE 2%, 20ML ONE (09:53)
[2019-12-09] MEDS ORDERED: CEFAZOLIN 1,000 MG ONE (09:53)
[2019-12-09] MEDS ORDERED: Hold all anticoagulants for 24 hours MC PRN (12:00)
[2019-12-09] MEDS ORDERED: ALPRazolam 1MG TAB PO PRN (12:00)
[2019-12-09] MEDS ORDERED: ACETAMINOPHEN 325 MG TABLET PO PRN ×2 (12:00→12:30)
[2019-12-09] MEDS ORDERED: MEPERIDINE/PF 25MG/ML,1ML IVPush PRN (12:30)
[2019-12-09] MEDS ORDERED: ONDANSETRON 2MG/ML, 2ML IV PRN (12:30)
[2019-12-09] MEDS ORDERED: PROMETHAZINE 25 MG/ML, 1ML IV PRN (12:30)
[2019-12-09] MEDS ORDERED: OXYcodone 5 MG/5 ML ORAL.SOL UDC PO PRN (12:30)
[2019-12-09] MEDS ORDERED: hydrALAzine 20 MG/ML, 1ML IV PRN (12:30)
[2019-12-09] MEDS ORDERED: EPHEDRINE 50 MG/ML, 1ML IVPush PRN (12:30)
[2019-12-09] MEDS ORDERED: HYDROmorphone 2 MG/ML, 1ML IVPush PRN (12:30)
[2019-12-09] MEDS ORDERED: LABETALOL 5MG/ML, 20ML IV PRN (12:30)
[2019-12-09] MEDS ORDERED: OXYcodone 5 MG/5 ML ORAL.SOL UDC ONE (13:13)
[2019-12-09] MEDS ORDERED: ACETAMINOPHEN 650 MG/20.3 ML UDC ONE (13:13)
[2019-12-09] MEDS: FENTANYL PF 100 MCG/2ML IV PRN ×2 (13:15→13:45)
[2019-12-09 15:00] VITALS: BP 111/73
[2019-12-09] MEDS ORDERED: KETOROLAC 30 MG/1 ML ONE (15:46)
[2019-12-09] MEDS ORDERED: DIPHENHYDRAMINE 50 MG/ML, 1ML ONE (15:46)
[2019-12-09] MEDS: PREGABALIN 200 MG CAPSULE PO SCH ×2 (17:04→21:36)
[2019-12-09] MEDS: CEFAZOLIN PMX 1GM/50ML 50 ML IVPB SCH (17:04)
[2019-12-09 20:00] VITALS: BP 129/83
[2019-12-09] MEDS: SODIUM CHLORIDE FLUSH 10ML SYR IVF SCH (21:00)
[2019-12-09] MEDS ORDERED: ATENOLOL 25 MG TABLET PO SCH (21:00)
[2019-12-09] MEDS: FLUDROCORTISONE 0.1 MG TABLET PO SCH (21:37)
[2019-12-09] MEDS: MULTIVITAMIN 1 TABLET PO SCH (21:37)
[2019-12-09] MEDS: POTASSIUM CHLORIDE 10 MEQ TABLET.ER PO SCH (21:37)
[2019-12-09] MEDS: SERTRALINE 50MG TABLET PO SCH (22:11)
[2019-12-10] MEDS: CEFAZOLIN PMX 1GM/50ML 50 ML IVPB SCH (01:54)
[2019-12-10 03:26] VITALS: BP 124/83
[2019-12-10] MEDS ORDERED: PANTOPRAZOLE 40MG TABLET PO SCH (09:00)
[2019-12-10] MEDS: SODIUM CHLORIDE FLUSH 10ML SYR IVF SCH (09:00)
[2019-12-10] MEDS: SERTRALINE 50MG TABLET PO SCH (09:00)
[2019-12-10] MEDS ORDERED: DIGOXIN 0.125 MG TABLET PO SCH (09:00)
[2019-12-10 09:25] VITALS: BP 129/79
[2019-12-10] MEDS: POTASSIUM CHLORIDE 10 MEQ TABLET.ER PO SCH (09:25)
[2019-12-10] MEDS: FLUDROCORTISONE 0.1 MG TABLET PO SCH (09:25)
[2019-12-10] MEDS: MULTIVITAMIN 1 TABLET PO SCH (09:26)
[2019-12-10] MEDS: PREGABALIN 200 MG CAPSULE PO SCH (09:35)
== END 2019-12-10 10:22 | disposition home or self-care (01) ==
LOC: CACL 06:38 → ORIP 11:59 → 5SO 14:57 → DCLOUNGE 12-10 10:18
PROVIDERS: ADMIT Internal Medicine Cardiovascular Disease; ATTEND Internal Medicine Cardiovascular Disease
DX: T82.120A Displacement of cardiac electrode, initial encounter (principal); E78.5 Hyperlipidemia, unspecified; K21.9 Gastro-esophageal reflux disease without esophagitis; Z88.2 Allergy status to sulfonamides; Z88.8 Allergy status to other drugs, medicaments and biological substances; Z79.899 Other long term (current) drug therapy
CPT/HCPCS: 33216; 33234; 36005; 36415; 71045; 71046; 80048; 85025; 86850; 86900; 93312; 93321; 93325; 96365; 96366; C1769; C1773; C1779; C1892; C1894; G0378; J0330; J0690; J1100; J1200; J1885; J2405; J2704; J2710; J3010; J3490; Q9967; J1644

== ENCOUNTER 2020-03-02 05:22 | Emergency (ER) | payer SELFPAY | END 2020-03-02 05:33 | disposition left against medical advice (07) | LOC: ED 05:27 | DX: Z53.21 Procedure and treatment not carried out due to patient leaving prior to being seen by health care provider (principal) ==

== ENCOUNTER 2020-03-31 05:20 | Emergency (ER) | payer MEDICARE, MEDICAID ==
[~2020-03-31] VITALS: Ht 165.1 cm; Wt 108.6 kg
[2020-03-31 05:23] VITALS: BP 147/84
--- NOTE | 2020-03-31 06:07 | NUR ---
Pt "hopped" up to gurney for exam by provider and was able to flex from the waist and touch chest to knees w/ neck completly flexed forward while sitting on gurney.
[2020-03-31] MEDS ORDERED: KETOROLAC 30 MG/1 ML ONE (06:10)
[2020-03-31] MEDS ORDERED: METHOCARBAMOL 750 MG TABLET ONE (06:10)
[2020-03-31] MEDS ORDERED: METHOCARBAMOL 750 MG TABLET PO ONE (06:30)
[2020-03-31] MEDS ORDERED: KETOROLAC 30 MG/1 ML IM ONE (06:30)
== END 2020-03-31 06:41 | disposition home or self-care (01) ==
LOC: ED 06:20
DX: S39.012A Strain of muscle, fascia and tendon of lower back, initial encounter (principal); S29.012A Strain of muscle and tendon of back wall of thorax, initial encounter; I10 Essential (primary) hypertension; Z90.49 Acquired absence of other specified parts of digestive tract; Z90.710 Acquired absence of both cervix and uterus; W22.8XXA Striking against or struck by other objects, initial encounter; Y93.89 Activity, other specified; Y92.89 Other specified places as the place of occurrence of the external cause; Y99.8 Other external cause status
CPT/HCPCS: 96372; 99283; J1885

== ENCOUNTER 2020-04-08 16:58 | Emergency (ER) | payer MEDICARE, MEDICAID ==
[~2020-04-08] VITALS: Ht 167.6 cm; Wt 105.3 kg
[2020-04-08 17:06] VITALS: BP 135/88
== END 2020-04-08 18:26 | disposition home or self-care (01) ==
LOC: ED 18:13
DX: G89.11 Acute pain due to trauma (principal); M25.521 Pain in right elbow; M25.561 Pain in right knee; M25.562 Pain in left knee; I10 Essential (primary) hypertension; E11.9 Type 2 diabetes mellitus without complications; K21.9 Gastro-esophageal reflux disease without esophagitis; Z90.49 Acquired absence of other specified parts of digestive tract; Z90.710 Acquired absence of both cervix and uterus; W18.30XA Fall on same level, unspecified, initial encounter; Y93.89 Activity, other specified; Y92.410 Unspecified street and highway as the place of occurrence of the external cause; Y99.8 Other external cause status
CPT/HCPCS: 99283

== ENCOUNTER 2020-08-03 12:08 | Emergency (ER) | payer MEDICARE, MEDICAID ==
[~2020-08-03] VITALS: Ht 167.6 cm; Wt 106.4 kg
[~2020-08-03 12:08] MED LIST changes: -PANT20TA3 PO; +PANT20TA4 PO; -PANT40TA5 PO; +PANT40TA6 PO
[2020-08-03 13:05] LABS: BASOPHILS % (AUTO) 0 % (0-1); EOSINOPHILS % (AUTO) 1 % (1-7); LYMPHOCYTES % (AUTO) 23 % (22-44); MEAN CORPUSCULAR HEMOGLOBIN 27.8 pg (27.0-34.8); MEAN PLATELET VOLUME 9.1 fL (7.4-10.4); MONOCYTES % (AUTO) 7 % (2-9); NEUTROPHILS % (AUTO) 69 % (42-75); PLATELET COUNT 169 x10^3/uL (130-400); RED BLOOD COUNT 5.84 x10^6/uL (3.82-5.3); RED CELL DISTRIBUTION WIDTH 13.6 % (9.6-15.2)
[2020-08-03 13:10] LABS: ALANINE AMINOTRANSFERASE 14 U/L (12-78); ANION GAP 5 mmol/L (5-15); CALCIUM 9.2 mg/dL (8.5-10.1); CHLORIDE 107 mmol/L (98-107); CREATININE 0.96 mg/dL (0.55-1.02)
[2020-08-03 13:11] LABS: MD NO
[2020-08-03 13:20] LABS: ALKALINE PHOSPHATASE 69 U/L (45-117); BILIRUBIN,TOTAL 0.6 mg/dL (0.2-1.0); TOTAL PROTEIN 8.2 g/dL (6.4-8.2); TROPONIN I < 0.015 ng/mL (0.000-0.045)
--- NOTE | 2020-08-03 14:12 | NUR ---
HEATING AND VENTILATING TENDER: PT TO ROOM FROM DEBBIE DEE
[2020-08-03 14:22] LABS: MICROSCOPIC NOT IND
[2020-08-03] MEDS ORDERED: SODIUM CHLORIDE 0.9%, 500ML IVBOLUS ONE (15:00)
--- NOTE | 2020-08-03 15:48 | NUR ---
IVF infusing well. Pt resting in bed looking at her phone,
[2020-08-03 16:43] VITALS: BP 130/78
== END 2020-08-03 16:45 | disposition home or self-care (01) ==
LOC: ED 14:50
DX: R42 Dizziness and giddiness (principal); R11.0 Nausea; I10 Essential (primary) hypertension; E11.9 Type 2 diabetes mellitus without complications; K21.9 Gastro-esophageal reflux disease without esophagitis; Z90.49 Acquired absence of other specified parts of digestive tract; Z90.710 Acquired absence of both cervix and uterus
CPT/HCPCS: 36415; 80053; 81003; 84443; 84484; 85025; 93005; 96360; 96361; 99284; J7040

== ENCOUNTER → 2020-12-24 | Outpatient (CLI) | payer MEDICARE, MEDICAID ==
[~2020-12-24] MED LIST changes: +ALPR-585 PO; -ALPR1TAB6 PO; -OXYC-302 PO; +OXYC1TAB14 PO; +TOPI25TA8 PO
== END | disposition home or self-care (01) ==
LOC: RAD 09:46
PROVIDERS: ATTEND Internal Medicine Clinical Cardiac Electrophysiology
DX: I48.91 Unspecified atrial fibrillation (principal); I49.5 Sick sinus syndrome; R00.2 Palpitations; R55 Syncope and collapse; Z95.0 Presence of cardiac pacemaker
CPT/HCPCS: 71046

== ENCOUNTER 2021-01-24 09:10 | Outpatient (CLI) | payer MEDICARE, MEDICAID | END 2021-01-24 23:59 | disposition home or self-care (01) | LOC: STAR 09:10 | PROVIDERS: ATTEND Internal Medicine Clinical Cardiac Electrophysiology | DX: Z20.822 Contact with and (suspected) exposure to COVID-19 (principal) | CPT/HCPCS: U0003 ==

== ENCOUNTER 2021-01-29 11:15 | Observation (INO) | payer MEDICARE, MEDICAID ==
[~2021-01-29] VITALS: Ht 162.6 cm; Wt 122.4 kg
[2021-01-29] MEDS ORDERED: MIDAZOLAM 1 MG/ML, 2ML ONE ×2 (11:53→12:52)
[2021-01-29] MEDS ORDERED: PLEASE ENTER HEIGHT AND WEIGHT MC SCH (12:00)
[2021-01-29] MEDS ORDERED: HYDROCORTISONE 100 MG INJ. ONE (12:11)
[2021-01-29] MEDS ORDERED: LIDOCAINE 2%, 20ML ONE (12:12)
[2021-01-29] MEDS ORDERED: CEFAZOLIN PMX 1GM/50ML 50 ML ONE (12:12)
[2021-01-29] MEDS ORDERED: CEFAZOLIN 1,000 MG ONE (12:12)
[2021-01-29 12:32] LABS: BASOPHILS % (AUTO) 1 % (0-1); EOSINOPHILS % (AUTO) 3 % (1-7); LYMPHOCYTES % (AUTO) 29 % (22-44); MEAN CORPUSCULAR HEMOGLOBIN 27.5 pg (27.0-34.8); MEAN CORPUSCULAR HGB CONC 33.4 g/dL (32.4-35.8); MEAN PLATELET VOLUME 9.1 fL (7.4-10.4); MONOCYTES % (AUTO) 7 % (2-9); NEUTROPHILS % (AUTO) 60 % (42-75); PLATELET COUNT 183 x10^3/uL (130-400); RED BLOOD COUNT 5.27 x10^6/uL (3.82-5.3); RED CELL DISTRIBUTION WIDTH 14.4 % (9.6-15.2)
[2021-01-29 12:42] LABS: ANION GAP 5 mmol/L (5-15); CALCIUM 8.4 mg/dL (8.5-10.1); CHLORIDE 113 mmol/L (98-107)
[2021-01-29] MEDS ORDERED: FENTANYL PF 250 MCG/5ML ONE (12:51)
[2021-01-29 13:01] LABS: MD SCAN
[2021-01-29 13:12] LABS: INTERNATIONAL NORMALIZED RATIO 1.06 (0.93-1.1); PROTHROMBIN TIME 11.3 Seconds (9.6-11.5)
[2021-01-29] MEDS ORDERED: ROCURONIUM 10MG/ML,5ML ONE (14:20)
[2021-01-29] MEDS ORDERED: PROPOFOL 10 MG/ML, 20ML ONE (14:20)
[2021-01-29] MEDS ORDERED: ONDANSETRON 2MG/ML, 2ML ONE ×2 (14:20)
[2021-01-29] MEDS ORDERED: DEXAMETHASONE 4 MG/ML, 5ML ONE (14:20)
[2021-01-29] MEDS ORDERED: HOLD MEDICATION MC PRN (14:30)
[2021-01-29] MEDS ORDERED: MEPERIDINE/PF 25MG/ML,1ML ONE (14:48)
[2021-01-29] MEDS ORDERED: FENTANYL PF 100 MCG/2ML IV PRN (15:00)
[2021-01-29] MEDS ORDERED: ALBUTEROL SULFATE 2.5 MG/3 ML NPPB PRN (15:00)
[2021-01-29] MEDS ORDERED: OXYcodone 5 MG/5 ML ORAL.SOL UDC PO PRN (15:00)
[2021-01-29] MEDS ORDERED: ALPRazolam 1MG TAB PO PRN (15:00)
[2021-01-29] MEDS ORDERED: DIAZEPAM 5 MG/ML, 2ML IVPush PRN (15:00)
[2021-01-29] MEDS ORDERED: DIPHENHYDRAMINE 50 MG/ML, 1ML IVPush PRN ×2 (15:00)
[2021-01-29] MEDS ORDERED: PROMETHAZINE 12.5 MG SUPP PR PRN (15:00)
[2021-01-29] MEDS ORDERED: ACETAMINOPHEN 325 MG TABLET PO PRN (15:00)
[2021-01-29] MEDS ORDERED: LABETALOL 5MG/ML, 20ML IV PRN (15:00)
[2021-01-29] MEDS ORDERED: PROMETHAZINE 25 MG/ML, 1ML IVPush PRN (15:00)
[2021-01-29] MEDS ORDERED: EPHEDRINE 50 MG/ML, 1ML IVPush PRN (15:00)
[2021-01-29] MEDS ORDERED: hydrALAzine 20 MG/ML, 1ML IV PRN (15:00)
[2021-01-29] MEDS ORDERED: MEPERIDINE/PF 25MG/0.5ML IVPush PRN (15:00)
[2021-01-29] MEDS ORDERED: HYDROmorphone 1 MG/ML, 1ML INJ IVPush PRN (15:00)
[2021-01-29] MEDS ORDERED: ONDANSETRON 2MG/ML, 2ML IVPush PRN (15:00)
[2021-01-29] MEDS ORDERED: MIDAZOLAM 1 MG/ML, 2ML IV PRN (15:00)
[2021-01-29] MEDS ORDERED: hydrALAzine 20 MG/ML, 1ML ONE (15:06)
[2021-01-29 16:00] VITALS: BP 121/62
[2021-01-29] MEDS ORDERED: GLYCOPYRROLATE 0.2MG/1ML, 5ML ONE (16:04)
[2021-01-29] MEDS ORDERED: SUCCINYLCHOLINE 20 MG/ML, 10ML ONE (16:04)
[2021-01-29 16:29] VITALS: BP 96/66
[2021-01-29 16:32] VITALS: BP 143/88
[2021-01-29] MEDS: SODIUM CHLORIDE 0.9% 1,000 ML IV SCH ×3 (16:51→20:47)
[2021-01-29] MEDS: PREGABALIN 200 MG CAPSULE PO SCH ×2 (17:58→20:46)
[2021-01-29] MEDS ORDERED: HYDROcodone/APAP 5/325 TABLET PO PRN (18:00)
[2021-01-29] MEDS: TOPIRAMATE 25 MG TABLET PO SCH (20:46)
[2021-01-29] MEDS: ACETAMINOPHEN 325 MG TABLET PO PRN (20:46)
[2021-01-29] MEDS: SODIUM CHLORIDE FLUSH 10ML SYR IVF SCH (20:46)
[2021-01-29] MEDS: FLUDROCORTISONE 0.1 MG TABLET PO SCH (20:46)
[2021-01-29 20:53] VITALS: BP 161/101
[2021-01-30 01:49] VITALS: BP 136/85
[2021-01-30] MEDS ORDERED: PANTOPRAZOLE 40MG TABLET PO SCH (07:00)
[2021-01-30 08:33] VITALS: BP 142/87
[2021-01-30] MEDS ORDERED: DIGOXIN 0.125 MG TABLET PO SCH (09:00)
[2021-01-30] MEDS ORDERED: POTASSIUM CHLORIDE 20 MEQ TAB.ER.PRT PO ONE (09:00)
[2021-01-30] MEDS: SODIUM CHLORIDE FLUSH 10ML SYR IVF SCH (09:03)
[2021-01-30] MEDS: TOPIRAMATE 25 MG TABLET PO SCH (09:03)
[2021-01-30] MEDS: FLUDROCORTISONE 0.1 MG TABLET PO SCH (09:03)
[2021-01-30] MEDS: PREGABALIN 200 MG CAPSULE PO SCH (09:03)
[2021-01-30] MEDS: ACETAMINOPHEN 325 MG TABLET PO PRN (11:24)
== END 2021-01-30 11:47 | disposition home or self-care (01) ==
LOC: CACL 11:15 → 5SO 16:06 → CACL 22:28 → DCLOUNGE 01-30 11:36
PROVIDERS: ADMIT Internal Medicine Clinical Cardiac Electrophysiology; ATTEND Internal Medicine Clinical Cardiac Electrophysiology
DX: T82.110A Breakdown (mechanical) of cardiac electrode, initial encounter (principal); I49.5 Sick sinus syndrome; I10 Essential (primary) hypertension; F12.10 Cannabis abuse, uncomplicated; Z91.040 Latex allergy status; Z79.899 Other long term (current) drug therapy
CPT/HCPCS: 33216; 33234; 36415; 71045; 80048; 84702; 85025; 85610; 86850; 86900; 93005; 93312; 93321; 93325; C1769; C1773; C1779; C1892; C1894; G0378; J0330; J0360; J0690; J1100; J1720; J2175; J2250; J2405; J2704; J3010; J3490; Q9967

== ENCOUNTER 2021-02-25 23:37 | Emergency (ER) | payer MEDICARE, MEDICAID ==
[~2021-02-25] VITALS: Ht 165.1 cm; Wt 80.0 kg
[~2021-02-25 23:37] MED LIST changes: -OMEP40CA42 PO; +OMEP40CA8 PO
--- NOTE | 2021-02-25 23:44 | NUR ---
CHAIN PULLER: PT. TO ROOM FROM WALL WITH GIANCARLO AT THIS TIME.
[2021-02-26] MEDS ORDERED: LORazepam 1MG TABLET ONE (00:09)
[2021-02-26] MEDS ORDERED: ONDANSETRON ODT 4 MG ONE (00:09)
--- NOTE | 2021-02-26 00:12 | NUR ---
PT BIB [facility] WITH C/O ANXIETY AND FEELING HOT AND COLD X TODAY
[2021-02-26] MEDS ORDERED: ONDANSETRON ODT 4 MG PO ONE (00:30)
[2021-02-26] MEDS ORDERED: LORazepam 1MG TABLET PO ONE (00:30)
[2021-02-26 00:48] LABS: BASOPHILS % (AUTO) 1 % (0-1); EOSINOPHILS % (AUTO) 2 % (1-7); LYMPHOCYTES % (AUTO) 20 % (22-44); MEAN CORPUSCULAR HEMOGLOBIN 28.1 pg (27.0-34.8); MEAN CORPUSCULAR HGB CONC 34.8 g/dL (32.4-35.8); MEAN PLATELET VOLUME 9.1 fL (7.4-10.4); MONOCYTES % (AUTO) 6 % (2-9); NEUTROPHILS % (AUTO) 72 % (42-75); PLATELET COUNT 171 x10^3/uL (130-400); RED BLOOD COUNT 5.25 x10^6/uL (3.82-5.3); RED CELL DISTRIBUTION WIDTH 14.6 % (9.6-15.2)
[2021-02-26 00:50] LABS: MD NO
--- NOTE | 2021-02-26 00:50 | NUR ---
BREAK RN: PT. RESTING ON GURNEY WITH NO DISTRESS NOTED. PT. REPORTS RELIEF FROM [facility] AND STATES "THE ANXIETY IS MUCH BETTER THAN IT WAS." PT. DENIES NEEDS AT THIS TIME. SAFETY MEASURES MAINTAINED.
[2021-02-26 00:53] LABS: ALANINE AMINOTRANSFERASE 20 U/L (12-78); ALBUMIN 3.4 g/dL (3.4-5.0); ANION GAP 6 mmol/L (5-15); CALCIUM 8.8 mg/dL (8.5-10.1); CHLORIDE 113 mmol/L (98-107); CREATININE 0.77 mg/dL (0.55-1.02)
[2021-02-26 00:58] LABS: ALKALINE PHOSPHATASE 99 U/L (45-117); BILIRUBIN,TOTAL 0.3 mg/dL (0.2-1.0); TOTAL PROTEIN 7.2 g/dL (6.4-8.2); TROPONIN I < 0.015 ng/mL (0.000-0.045)
[2021-02-26 01:40] VITALS: BP 131/71
== END 2021-02-26 01:42 | disposition home or self-care (01) ==
LOC: ED 02-26 00:02
DX: R53.1 Weakness (principal); R11.2 Nausea with vomiting, unspecified; R42 Dizziness and giddiness; R06.00 Dyspnea, unspecified; I10 Essential (primary) hypertension; K21.9 Gastro-esophageal reflux disease without esophagitis; E11.40 Type 2 diabetes mellitus with diabetic neuropathy, unspecified; I95.9 Hypotension, unspecified; Z90.49 Acquired absence of other specified parts of digestive tract
CPT/HCPCS: 36415; 71046; 80053; 83690; 84484; 85025; 93005; 99285; Q0162

== ENCOUNTER 2021-06-06 11:29 | Outpatient (CLI) | payer MEDICARE, MEDICAID ==
[~2021-06-06 11:29] MED LIST changes: +OXYC1TAB12 PO; -OXYC1TAB14 PO
== END 2021-06-06 23:59 | disposition home or self-care (01) ==
LOC: RAD 11:29
PROVIDERS: ATTEND Internal Medicine Clinical Cardiac Electrophysiology
DX: I48.91 Unspecified atrial fibrillation (principal)
CPT/HCPCS: 71046